=== PATIENT | female | born 1970 | race Two or more races ===

== ENCOUNTER 2016-10-25 20:43 | Emergency (ER) | payer MEDICAID ==
[~2016-10-25] VITALS: Ht 167.6 cm; Wt 73.0 kg
[2016-10-25] MEDS ORDERED: IBUPROFEN 800MG TABLET PO ONE (22:00)
[2016-10-25 22:41] VITALS: BP 115/83
== END 2016-10-25 22:50 | disposition home or self-care (01) ==
LOC: ER 20:43
DX: S09.90XA Unspecified injury of head, initial encounter (principal); F17.210 Nicotine dependence, cigarettes, uncomplicated; Y08.89XA Assault by other specified means, initial encounter
CPT/HCPCS: 99283